=== PATIENT | female | born 1930 | race Caucasian/White ===

== ENCOUNTER → 2016-08-01 | Outpatient (CLI) | payer OTHER, MEDICARE ==
[~2016-08-01] MED LIST: ALENDRONATE SOD70 MG PO; ASPIRIN81 M2 PO; CALCIUM 600 +1 EACH PO; CITRATE OF MAG296 ML PO; COLACE 100 MG100 MG PO; DILTIAZEM ER240 MG PO; FOLIC ACID 40400 MC1 PO; LOVASTAT40 PO; NORCO 5-325 TA1 EACH PO; PRINIVIL10 MG PO; VENLAFAXINE HC150 MG PO; VITAMIN B12-FO1 EAC1 PO; VITAMIN D2000 UNI1 PO
== END ==
LOC: RAD 11:45
DX: R06.00 Dyspnea, unspecified (principal)